=== PATIENT | female | born 2000 | race Caucasian/White ===

== ENCOUNTER 2022-08-10 18:28 | Emergency (ER) | payer MEDICAID ==
[~2022-08-10] VITALS: Ht 167.6 cm; Wt 55.3 kg
[2022-08-10 19:48] VITALS: BP 112/61
[2022-08-10] MEDS ORDERED: IBUPROFEN 600 MG TAB PO ONE (20:05)
[2022-08-10] MEDS ORDERED: PROM118S5 PO (20:52)
[2022-08-10] MEDS ORDERED: IBUP-2213 PO (20:52)
[2022-08-10] MEDS ORDERED: BENZ-300 PO (20:52)
[2022-08-10] MEDS ORDERED: IBUPROFEN 600 MG TAB ONE (21:24)
--- NOTE | 2022-08-10 21:51 | NUR ---
COVID-19 and flu swabs collected and sent to lab.
[2022-08-10 22:10] VITALS: BP 120/72
--- NOTE | 2022-08-10 22:10 | NUR ---
Patient discharged with v/s stable. Written and verbal after care instructions given and explained. Patient alert, oriented and verbalized understanding of instructions. Ambulatory with steady gait. All questions addressed prior to discharge. ID band removed. Patient advised to follow up with PMD. Rx of Tylenol, Loperamide and Promethazine given. Patient educated on indication of medication including possible reaction and side effects. Opportunity to ask questions provided and answered.
== END 2022-08-10 22:10 | disposition home or self-care (01) ==
LOC: MED 18:28
DX: B34.9 Viral infection, unspecified (principal); Z20.822 Contact with and (suspected) exposure to COVID-19; Z79.899 Other long term (current) drug therapy
CPT/HCPCS: 99283

== ENCOUNTER 2024-08-12 13:26 | Emergency (ER) | payer MEDICAID, OTHER ==
[~2024-08-12] VITALS: Ht 170.2 cm; Wt 58.5 kg
[~2024-08-12 13:26] MED LIST: BENZ-300 PO; IBUP-2213 PO; PROM118S5 PO
[2024-08-12 13:38] VITALS: BP 113/73; PULSE 118; RESP 16; TEMP 98.1; O2SAT 99
[2024-08-12 14:02] LABS: APPEARANCE,URINE HAZY (CLEAR); BILIRUBIN,URINE NEGATIVE (NEGATIVE); BLOOD, URINE 2+ (NEGATIVE); COLOR,URINE YELLOW (YELLOW); LEUKOCYTE ESTERASE ,URINE 1+ (NEGATIVE); NITRITE, URINE POSITIVE (NEGATIVE); PROTEIN,URINE 1+ (NEGATIVE); UGLUCOSE NEGATIVE (NEGATIVE); UROBILINOGEN,URINE 0.2 EU/dL (0.2 - 1)
[2024-08-12] MEDS: NACL 0.9% 1,000 ML IV ONE (14:07)
[2024-08-12 14:15] LABS: BACTERIA,URINE 2+ /HPF (None Seen); RBC,URINE 11-20 (MOD) /HPF (0-5); SQUAMOUS EPITHELIAL CELL,UR 4-10 (MOD) /LPF (0-3 (FEW)); WBC,URINE TOO MANY TO COUNT /HPF (0-5)
[2024-08-12 14:16] LABS: LYMPHOCYTES # (AUTO) 0.4 K/uL (2.5-16.5); NEUTROPHILS # (AUTO) 12.5 K/uL (1.8-7.7)
[2024-08-12 14:18] LABS: BASOPHILS # (AUTO) 0.1 K/uL (0.00-0.22); BASOPHILS % (AUTO) 0.4 % (0.0-2.0); HEMATOCRIT 41.9 % (36-48); HEMOGLOBIN 14.3 g/dL (12.0-16.0); MEAN CORPUSCULAR HEMOGLOBIN 33 pg (27-31); MEAN CORPUSCULAR HGB CONC 34 g/dL (33-37); MEAN CORPUSCULAR VOLUME 96.3 fL (80-94); MONOCYTES # (AUTO) 1.1 K/uL (0.8-1.0); MONOCYTES % (AUTO) 7.6 % (1.7-9.3); PLATELET COUNT (AUTO) 135 K/uL (140-450); RED BLOOD CELL COUNT(AUTO) 4.35 MIL/uL (4.20-5.40); RED CELL DISTRIBUTION WIDTH 13.1 % (11.6-13.7); WHITE BLOOD COUNT (AUTO) 14.1 K/uL (4.8-10.8)
[2024-08-12] MEDS: KETOROLAC 30 MG/ML VIAL IVP ONE (14:19)
[2024-08-12 14:39] LABS: ALBUMIN 3.9 g/dL (3.4-5.0); BILIRUBIN,DIRECT 0.2 mg/dL (0.0-0.3); TOTAL BILIRUBIN 1.1 mg/dL (0.0-1.0); TOTAL PROTEIN, SERUM 8.1 g/dL (6.4-8.2)
[2024-08-12 14:59] LABS: ANION GAP 14.5 (8-16); CALCIUM 8.9 mg/dL (8.5-10.1); CARBON DIOXIDE 25.9 mmol/L (21-32); CREATININE 0.8 mg/dL (0.6-1.3); POTASSIUM 4.4 mmol/L (3.5-5.1)
[2024-08-12] MEDS ORDERED: cefTRIAXone 1,000 MG VIAL ONE (15:32)
[2024-08-12] MEDS ORDERED: ONDA-188 SL (16:05)
[2024-08-12] MEDS ORDERED: CEFP200T20 PO (16:05)
[2024-08-12 16:20] VITALS: BP 107/60; PULSE 96; RESP 21; TEMP 98.1; O2SAT 97
== END 2024-08-12 16:20 | disposition home or self-care (01) ==
LOC: MED 13:26
DX: N12 Tubulo-interstitial nephritis, not specified as acute or chronic (principal); R00.0 Tachycardia, unspecified; Z79.899 Other long term (current) drug therapy
CPT/HCPCS: 36415; 80048; 80076; 81001; 81025; 83690; 85025; 87086; 87186; 96361; 96365; 96375; 99285; J0696; J1885; J7030